=== PATIENT | female | born 1940 | race African-American/Black ===

== ENCOUNTER 2017-12-10 02:20 | Inpatient (IN) ==
[2017-12-10 04:33] LABS: Basophils % 0.7 % (0.0-0.8); Eosinophils # 0.1 10*3/uL (0.0-0.87); Eosinophils % 1.8 % (0.00-10.9); Hematocrit 32.1 VOL% (35.7-47.0); Hemoglobin 9.4 GM/DL (12.0-16.0); Immature Granulocytes % 0.3 %; Immature Granulocytes Absolute 0.02 #; Lymphocytes # 1.1 10*3/uL (1.4-4.0); Lymphocytes % 17.9 % (21.3-54.2); Mean Corpuscular HGB Conc 29.3 GM/DL (32-36); Mean Corpuscular Hemoglobin 22 PG (27-34); Mean Corpuscular Volume 75.2 FL (87-102); Monocytes # 0.4 10*3/uL (0.11-0.8); Monocytes % 7.2 % (1.7-12.7); Neutrophils # 4.3 10*3/uL (1.4-7.4); Neutrophils % 72.1 % (38.7-73.9); Platelet Count 255 T/CUMM (130-400); Red Blood Count 4.27 MC/CUMM (3.8-5.5); Red Cell Distribution Width 18.9 % (9.3-17.3)
[2017-12-10 04:34] LABS: Alanine Aminotransferase 21 U/L (13-56); Albumin 3.4 G/DL (3.4-5.0); Alkaline Phosphatase 108 U/L (45-117); Aspartate Amino Transferase 26 U/L (0-37); Blood Urea Nitrogen 19 MG/DL (7-18); Calcium 8.7 MG/DL (8.5-10.1); Glucose 474 MG/DL (74-106); Osmolality,Calculated 301.4 MOS/KG (273-304); Potassium 3.3 MMOL/L (3.5-5.1); Sodium 140 MMOL/L (136-145); Total Protein 7.6 G/DL (6.4-8.3); Troponin I Only < 0.015 NG/ML (0.00-0.045)
[2017-12-10 04:46] LABS: VBG Base Excess 0.9 MEQ/L (0-4); VBG Oxygen Saturation 83.3 %; VBG PCO2 44.2 MMHG (41-51); VBG PH 7.38; VBG PO2 52.9 MMHG (17-40)
[2017-12-10] MEDS ORDERED: FUROSEMIDE 40 MG/4 ML VIAL IV STA (05:44)
[2017-12-10] MEDS ORDERED: cefTRIAXone 1,000 MG in SODIUM CHLORIDE 0.9% 100 ML IV STA (05:45)
[2017-12-10] MEDS ORDERED: diphenhydrAMINE 50 MG/1 ML VIAL IV STA (06:13)
[2017-12-10] MEDS ORDERED: methylPREDNISolone SOD SUC 125 MG/2 ML VIAL IV STA (06:13)
[2017-12-10] MEDS ORDERED: FAMOTIDINE 20 MG/2 ML VIAL IV STA (06:14)
[2017-12-10] MEDS ORDERED: cefTRIAXone 1,000 MG VIAL ONE (06:21)
[2017-12-10] MEDS ORDERED: FUROSEMIDE 40 MG/4 ML VIAL ONE (06:21)
[2017-12-10] MEDS ORDERED: diphenhydrAMINE 50 MG/1 ML VIAL ONE (06:22)
[2017-12-10] MEDS ORDERED: methylPREDNISolone SOD SUC 125 MG/2 ML VIAL ONE (06:22)
[2017-12-10] MEDS ORDERED: FAMOTIDINE 20 MG/2 ML VIAL IV ONE (06:22)
[2017-12-10 07:06] LABS: Apearance,Urine CLEAR (Clear); Bacteria,Urine Occasional /HPF (Few); Bilirubin,Urine Negative (Negative); Blood, Urine Negative (Negative); Glucose,Urine (UA) >=500 mg/dL (Negative); Ketones,Urine Negative (Negative); Nitrite,Urine Negative (Negative); Protein,Urine Negative; RBC,Urine 1 /HPF (0-4); Urine Color Straw (Yellow); Urine Specific Gravity 1.014 (1.001-1.035); Urine Urobilinogen < 2.0 EU/DL (0.2-1.0)
[2017-12-10] MEDS ORDERED: SIMETHICONE CHEW 125 MG TABLET PO PRN (09:34)
[2017-12-10] MEDS ORDERED: MORPHINE 2 MG/1 ML SYRINGE IV PRN (09:34)
[2017-12-10] MEDS ORDERED: GLUCAGON 1 MG VIAL IM PRN (09:34)
[2017-12-10] MEDS ORDERED: DEXTROSE 50% 25 GM/50 ML VIAL IV PRN (09:34)
[2017-12-10] MEDS ORDERED: ONDANSETRON 4 MG/2 ML VIAL IV PRN (09:34)
[2017-12-10] MEDS ORDERED: FUROSEMIDE 40 MG TABLET PO SCH (09:34)
[2017-12-10] MEDS: INDOMETHACIN 25 MG CAPSULE PO SCH ×3 (11:08→22:22)
[2017-12-10] MEDS: ENOXAPARIN 40 MG/0.4 ML SYRINGE SUBCUT SCH (11:08)
[2017-12-10] MEDS: INSULIN REGULAR 100 UNIT/ML SUBCUT SCH ×4 (11:09→22:22)
[2017-12-10] MEDS: amLODIPine 10 MG TABLET PO SCH (11:09)
[2017-12-10] MEDS: INSULIN NPH/REGULAR 70/30 100 UNIT/ML SUBCUT SCH ×2 (11:09→18:04)
[2017-12-10] MEDS: DOCUSATE SODIUM 100 MG CAPSULE PO SCH ×2 (11:10→22:22)
[2017-12-10] MEDS: BACLOFEN 10 MG TABLET PO SCH ×2 (11:10→22:23)
[2017-12-10] MEDS: CILOSTAZOL 100 MG TABLET PO SCH (11:10)
[2017-12-10] MEDS: QUINAPRIL 20 MG TABLET PO SCH (11:10)
[2017-12-10] MEDS: PANTOPRAZOLE 40 MG TABLET PO SCH (11:11)
[2017-12-10] MEDS: CLOPIDOGREL 75 MG TABLET PO SCH (11:11)
[2017-12-10] MEDS: GABAPENTIN 300 MG CAPSULE PO SCH (11:11)
[2017-12-10] MEDS: metFORMIN 500 MG TABLET PO SCH ×2 (11:11→18:04)
[2017-12-10 11:18] LABS: Risk Ratio 2.4; VLDL CHOLESTEROL 7.8 MG/DL
[2017-12-10] MEDS: POTASSIUM CHLORIDE 20 MEQ TABLET PO PRN ×2 (13:31→15:55)
[2017-12-10] MEDS: CARVEDILOL 12.5 MG TABLET PO SCH ×2 (13:31→22:21)
[2017-12-10 18:03] LABS: ABG Base Excess 3.4 MMOL/L (-2.5-2.5); ABG HCO3 27.4 MMOL/L (20-26); ABG Oxygen Saturation 93.9 % (95-100); ABG PCO2 39.3 MM HG (35-48); ABG PH 7.454 (7.35-7.45); ABG PO2 68.8 MM HG (80-95); ABG TCO2 25.7 MMOL/L (23-27)
[2017-12-10] MEDS: cefTRIAXone 2,000 MG in SYRINGE 1 EACH IV SCH (18:14)
[2017-12-10] MEDS: FUROSEMIDE 40 MG/4 ML VIAL IV SCH (18:14)
[2017-12-10] MEDS ORDERED: ATORVASTATIN 20 MG TABLET PO SCH (21:00)
[2017-12-10] MEDS: POTASSIUM CHLORIDE RIDER 10 MEQ in PREMIX 1 EACH IV PRN ×2 (21:10→22:12)
[2017-12-10] MEDS: DOXYCYCLINE HYCLATE 100 MG CAPSULE PO SCH (22:21)
[2017-12-10] MEDS: INSULIN GLARGINE 100 UNIT/ML SUBCUT SCH (22:22)
[2017-12-11 01:05] LABS: Calcium 8.7 MG/DL (8.5-10.1); Osmolality,Calculated 290.8 MOS/KG (273-304); Potassium 3.3 MMOL/L (3.5-5.1)
[2017-12-11 01:08] LABS: Basophils % 0.1 % (0.0-0.8); Hematocrit 25.1 VOL% (35.7-47.0); Hemoglobin 7.8 GM/DL (12.0-16.0); Immature Granulocytes % 0.2 %; Immature Granulocytes Absolute 0.02 #; Lymphocytes # 1.1 10*3/uL (1.4-4.0); Lymphocytes % 13.7 % (21.3-54.2); Mean Corpuscular HGB Conc 31.1 GM/DL (32-36); Mean Corpuscular Hemoglobin 22 PG (27-34); Mean Corpuscular Volume 71.9 FL (87-102); Mean Platelet Volume 11.1 FL (9.6-12.0); Monocytes # 0.6 10*3/uL (0.11-0.8); Monocytes % 7.1 % (1.7-12.7); Neutrophils # 6.5 10*3/uL (1.4-7.4); Neutrophils % 78.9 % (38.7-73.9); Platelet Count 271 T/CUMM (130-400); Red Blood Count 3.49 MC/CUMM (3.8-5.5); Red Cell Distribution Width 18.8 % (9.3-17.3); White Blood Count 8.3 T/CUMM (4-12)
[2017-12-11] MEDS: INSULIN REGULAR 100 UNIT/ML SUBCUT SCH ×4 (08:40→22:20)
[2017-12-11] MEDS: FUROSEMIDE 40 MG/4 ML VIAL IV SCH ×2 (08:41→17:03)
[2017-12-11] MEDS: metFORMIN 500 MG TABLET PO SCH (08:41)
[2017-12-11] MEDS: CILOSTAZOL 100 MG TABLET PO SCH (08:42)
[2017-12-11] MEDS: INDOMETHACIN 25 MG CAPSULE PO SCH (08:42)
[2017-12-11] MEDS: QUINAPRIL 20 MG TABLET PO SCH (08:42)
[2017-12-11] MEDS: POTASSIUM CHLORIDE 20 MEQ TABLET PO PRN ×3 (08:42→13:15)
[2017-12-11] MEDS: DOCUSATE SODIUM 100 MG CAPSULE PO SCH ×2 (08:42→22:19)
[2017-12-11] MEDS: GABAPENTIN 300 MG CAPSULE PO SCH (08:42)
[2017-12-11] MEDS: PANTOPRAZOLE 40 MG TABLET PO SCH (08:43)
[2017-12-11] MEDS: CARVEDILOL 12.5 MG TABLET PO SCH ×2 (08:43→22:19)
[2017-12-11] MEDS: BACLOFEN 10 MG TABLET PO SCH ×2 (08:43→22:19)
[2017-12-11] MEDS: amLODIPine 10 MG TABLET PO SCH (08:43)
[2017-12-11] MEDS: CLOPIDOGREL 75 MG TABLET PO SCH (08:43)
[2017-12-11] MEDS: INSULIN NPH/REGULAR 70/30 100 UNIT/ML SUBCUT SCH ×2 (08:47→18:00)
[2017-12-11] MEDS: DOXYCYCLINE HYCLATE 100 MG CAPSULE PO SCH ×2 (08:52→22:19)
[2017-12-11] MEDS ORDERED: ASPIRIN EC 81 MG TABLET PO SCH (09:00)
[2017-12-11] MEDS: ENOXAPARIN 40 MG/0.4 ML SYRINGE SUBCUT SCH (10:52)
[2017-12-11] MEDS: cefTRIAXone 2,000 MG in SYRINGE 1 EACH IV SCH (17:01)
[2017-12-11] MEDS: ATORVASTATIN 40 MG TABLET PO SCH (22:19)
[2017-12-11] MEDS: INSULIN GLARGINE 100 UNIT/ML SUBCUT SCH (22:19)
[2017-12-12 05:10] LABS: Basophils % 0.6 % (0.0-0.8); Eosinophils # 0.2 10*3/uL (0.0-0.87); Eosinophils % 3.2 % (0.00-10.9); Hematocrit 25.3 VOL% (35.7-47.0); Hemoglobin 7.5 GM/DL (12.0-16.0); Immature Granulocytes % 0.3 %; Immature Granulocytes Absolute 0.02 #; Lymphocytes # 2.2 10*3/uL (1.4-4.0); Lymphocytes % 30.6 % (21.3-54.2); Mean Corpuscular HGB Conc 29.6 GM/DL (32-36); Mean Corpuscular Hemoglobin 22 PG (27-34); Mean Corpuscular Volume 75.1 FL (87-102); Mean Platelet Volume 11.2 FL (9.6-12.0); Monocytes # 0.6 10*3/uL (0.11-0.8); Monocytes % 8.5 % (1.7-12.7); Neutrophils # 4.1 10*3/uL (1.4-7.4); Neutrophils % 56.8 % (38.7-73.9); Platelet Count 262 T/CUMM (130-400); Red Blood Count 3.37 MC/CUMM (3.8-5.5); Red Cell Distribution Width 19.1 % (9.3-17.3); White Blood Count 7.2 T/CUMM (4-12)
[2017-12-12 05:20] LABS: Calcium 8.5 MG/DL (8.5-10.1); Osmolality,Calculated 292.8 MOS/KG (273-304); Potassium 3.7 MMOL/L (3.5-5.1)
[2017-12-12 05:25] LABS: % Iron Saturation 5.1 % (18-50); Ferritin 12.2 ng/ml (8-252)
[2017-12-12 06:26] LABS: Sedimentation Rate-Westergren 68 MM/HR (0-30)
[2017-12-12 07:20] LABS: Folate 11.7 NG/ML (5.4-24.0); Vitamin B12 307 PG/ML (211-911)
[2017-12-12 09:27] LABS: Hemoglobin A1 (Alkaline) 97.8 % (96.5-98.5); Hemoglobin A2 (Alkaline) 2.2 % (1.5-3.5)
[2017-12-12] MEDS ORDERED: CYANOCOBALAMIN 1000 MCG/1 ML VIAL IM ONE (09:29)
[2017-12-12] MEDS: FUROSEMIDE 40 MG/4 ML VIAL IV SCH ×2 (09:31→15:21)
[2017-12-12] MEDS ORDERED: SODIUM CHLORIDE 0.9% 1,000 ML IV PRN (09:31)
[2017-12-12] MEDS: INSULIN REGULAR 100 UNIT/ML SUBCUT SCH ×4 (09:31→22:43)
[2017-12-12] MEDS: QUINAPRIL 20 MG TABLET PO SCH (09:32)
[2017-12-12] MEDS: ASCORBIC ACID 500 MG TABLET PO SCH ×2 (09:35→22:08)
[2017-12-12] MEDS: FERROUS SULFATE 325 MG TABLET PO SCH ×2 (09:35→22:07)
[2017-12-12] MEDS: DOCUSATE SODIUM 100 MG CAPSULE PO SCH ×2 (09:35→22:08)
[2017-12-12] MEDS: DOXYCYCLINE HYCLATE 100 MG CAPSULE PO SCH ×2 (09:35→22:07)
[2017-12-12] MEDS: GABAPENTIN 300 MG CAPSULE PO SCH (09:35)
[2017-12-12] MEDS: amLODIPine 10 MG TABLET PO SCH (09:35)
[2017-12-12] MEDS: PANTOPRAZOLE 40 MG TABLET PO SCH (09:36)
[2017-12-12] MEDS: POTASSIUM CHLORIDE 20 MEQ TABLET PO SCH (09:36)
[2017-12-12] MEDS: BACLOFEN 10 MG TABLET PO SCH ×2 (09:36→22:07)
[2017-12-12] MEDS: INSULIN NPH/REGULAR 70/30 100 UNIT/ML SUBCUT SCH ×2 (09:36→19:24)
[2017-12-12] MEDS: CARVEDILOL 12.5 MG TABLET PO SCH ×2 (09:36→22:07)
[2017-12-12] MEDS: CLOPIDOGREL 75 MG TABLET PO SCH (09:36)
[2017-12-12] MEDS: POTASSIUM CHLORIDE 20 MEQ TABLET PO PRN (11:16)
[2017-12-12] MEDS: cefTRIAXone 2,000 MG in SYRINGE 1 EACH IV SCH (15:21)
[2017-12-12] MEDS: POLYETHYLENE GLYCOL POWDER 17 GM PACK PO SCH (15:21)
[2017-12-12 21:00] LABS: Hematocrit 37.3 VOL% (35.7-47.0); Hemoglobin 11.7 GM/DL (12.0-16.0)
[2017-12-12] MEDS: ATORVASTATIN 40 MG TABLET PO SCH (22:07)
[2017-12-12] MEDS: INSULIN GLARGINE 100 UNIT/ML SUBCUT SCH (22:43)
[2017-12-13 05:35] LABS: Basophils % 0.6 % (0.0-0.8); Eosinophils # 0.2 10*3/uL (0.0-0.87); Eosinophils % 2.9 % (0.00-10.9); Hematocrit 33.2 VOL% (35.7-47.0); Hemoglobin 10.1 GM/DL (12.0-16.0); Immature Granulocytes % 0.4 %; Immature Granulocytes Absolute 0.03 #; Lymphocytes % 28.7 % (21.3-54.2); Mean Corpuscular HGB Conc 30.4 GM/DL (32-36); Mean Corpuscular Hemoglobin 23 PG (27-34); Mean Corpuscular Volume 75.3 FL (87-102); Mean Platelet Volume 11.2 FL (9.6-12.0); Monocytes # 0.7 10*3/uL (0.11-0.8); Monocytes % 9.8 % (1.7-12.7); Neutrophils # 3.9 10*3/uL (1.4-7.4); Neutrophils % 57.6 % (38.7-73.9); Platelet Count 281 T/CUMM (130-400); Red Blood Count 4.41 MC/CUMM (3.8-5.5); White Blood Count 6.8 T/CUMM (4-12)
[2017-12-13 06:09] LABS: Calcium 8.4 MG/DL (8.5-10.1); Osmolality,Calculated 284.4 MOS/KG (273-304); Potassium 3.3 MMOL/L (3.5-5.1)
[2017-12-13] MEDS: POTASSIUM CHLORIDE 20 MEQ TABLET PO PRN (06:35)
[2017-12-13] MEDS ORDERED: POTASSIUM CHLORIDE 20 MEQ TABLET PO SCH (09:24)
[2017-12-13] MEDS: POTASSIUM CHLORIDE 20 MEQ TABLET PO SCH (11:10)
[2017-12-13] MEDS: INSULIN REGULAR 100 UNIT/ML SUBCUT SCH ×3 (11:11→22:29)
[2017-12-13] MEDS: FUROSEMIDE 40 MG/4 ML VIAL IV SCH ×2 (11:11→17:44)
[2017-12-13] MEDS: INSULIN NPH/REGULAR 70/30 100 UNIT/ML SUBCUT SCH ×2 (11:12→18:16)
[2017-12-13] MEDS: QUINAPRIL 20 MG TABLET PO SCH (11:12)
[2017-12-13] MEDS: DOXYCYCLINE HYCLATE 100 MG CAPSULE PO SCH ×2 (11:12→21:47)
[2017-12-13] MEDS: CLOPIDOGREL 75 MG TABLET PO SCH (11:13)
[2017-12-13] MEDS: PANTOPRAZOLE 40 MG TABLET PO SCH (11:13)
[2017-12-13] MEDS: ASCORBIC ACID 500 MG TABLET PO SCH ×2 (11:13→21:48)
[2017-12-13] MEDS: GABAPENTIN 300 MG CAPSULE PO SCH (11:13)
[2017-12-13] MEDS: DOCUSATE SODIUM 100 MG CAPSULE PO SCH ×2 (11:13→21:47)
[2017-12-13] MEDS: FERROUS SULFATE 325 MG TABLET PO SCH ×2 (11:13→21:47)
[2017-12-13] MEDS: amLODIPine 10 MG TABLET PO SCH (11:13)
[2017-12-13] MEDS: BACLOFEN 10 MG TABLET PO SCH ×2 (11:13→21:47)
[2017-12-13] MEDS: CARVEDILOL 12.5 MG TABLET PO SCH ×2 (11:13→21:47)
[2017-12-13] MEDS: POLYETHYLENE GLYCOL POWDER 17 GM PACK PO SCH (11:14)
[2017-12-13] MEDS: CYANOCOBALAMIN 500 MCG TABLET PO SCH (11:14)
[2017-12-13] MEDS: cefTRIAXone 2,000 MG in SYRINGE 1 EACH IV SCH (18:16)
[2017-12-13] MEDS: ATORVASTATIN 40 MG TABLET PO SCH (21:47)
[2017-12-13] MEDS: INSULIN GLARGINE 100 UNIT/ML SUBCUT SCH (22:30)
[2017-12-14 04:58] LABS: Basophils % 0.5 % (0.0-0.8); Eosinophils # 0.2 10*3/uL (0.0-0.87); Eosinophils % 3.8 % (0.00-10.9); Hematocrit 33.6 VOL% (35.7-47.0); Hemoglobin 10.4 GM/DL (12.0-16.0); Immature Granulocytes % 0.2 %; Immature Granulocytes Absolute 0.01 #; Lymphocytes # 1.7 10*3/uL (1.4-4.0); Lymphocytes % 27.4 % (21.3-54.2); Mean Corpuscular Hemoglobin 23 PG (27-34); Mean Platelet Volume 10.5 FL (9.6-12.0); Monocytes # 0.7 10*3/uL (0.11-0.8); Monocytes % 10.9 % (1.7-12.7); Neutrophils # 3.5 10*3/uL (1.4-7.4); Neutrophils % 57.2 % (38.7-73.9); Platelet Count 265 T/CUMM (130-400); Red Blood Count 4.54 MC/CUMM (3.8-5.5); Red Cell Distribution Width 18.3 % (9.3-17.3); White Blood Count 6.1 T/CUMM (4-12)
[2017-12-14 05:31] LABS: Calcium 8.5 MG/DL (8.5-10.1); Osmolality,Calculated 290.1 MOS/KG (273-304); Potassium 3.8 MMOL/L (3.5-5.1)
[2017-12-14] MEDS ORDERED: CHOLECALCIFEROL 1,000 UNIT TABLET PO SCH (09:00)
[2017-12-14] MEDS: POLYETHYLENE GLYCOL POWDER 17 GM PACK PO SCH (10:16)
[2017-12-14] MEDS: amLODIPine 10 MG TABLET PO SCH (10:17)
[2017-12-14] MEDS: BACLOFEN 10 MG TABLET PO SCH (10:17)
[2017-12-14] MEDS: DOCUSATE SODIUM 100 MG CAPSULE PO SCH (10:17)
[2017-12-14] MEDS: CYANOCOBALAMIN 500 MCG TABLET PO SCH (10:17)
[2017-12-14] MEDS: CLOPIDOGREL 75 MG TABLET PO SCH (10:17)
[2017-12-14] MEDS: PANTOPRAZOLE 40 MG TABLET PO SCH (10:18)
[2017-12-14] MEDS: FERROUS SULFATE 325 MG TABLET PO SCH (10:18)
[2017-12-14] MEDS: GABAPENTIN 300 MG CAPSULE PO SCH (10:18)
[2017-12-14] MEDS: CARVEDILOL 12.5 MG TABLET PO SCH (10:18)
[2017-12-14] MEDS: FUROSEMIDE 40 MG/4 ML VIAL IV SCH ×2 (10:25→16:53)
[2017-12-14] MEDS: QUINAPRIL 20 MG TABLET PO SCH (10:39)
[2017-12-14] MEDS: INSULIN REGULAR 100 UNIT/ML SUBCUT SCH ×3 (10:39→15:45)
[2017-12-14] MEDS: DOXYCYCLINE HYCLATE 100 MG CAPSULE PO SCH (10:40)
[2017-12-14] MEDS: INSULIN NPH/REGULAR 70/30 100 UNIT/ML SUBCUT SCH (10:40)
[2017-12-14] MEDS: ASCORBIC ACID 500 MG TABLET PO SCH (10:40)
[2017-12-14] MEDS ORDERED: INSULIN GLARGINE 100 UNIT/ML SUBCUT SCH (12:23)
[2017-12-14] MEDS ORDERED: FUROSEMIDE 20 MG/2 ML VIAL ONE (16:26)
[2017-12-14 16:49] VITALS: BP 147/72
[2017-12-14] MEDS: cefTRIAXone 2,000 MG in SYRINGE 1 EACH IV SCH (16:59)
== END 2017-12-14 19:10 | disposition home or self-care (01) | DRG 291 ==
LOC: EDBD → EDUNIT# → N.ED 02:20 → N.EDINP 06:21 → N.TELES 09:21
PROVIDERS: ADMIT Hospitalist; ATTEND Hospitalist